=== PATIENT | male | born 1970 | race African-American/Black ===

== ENCOUNTER 2018-05-21 19:02 | Emergency (ER) | payer SELFPAY ==
--- NOTE | 2018-05-21 20:05 | ER Document Report ---
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 No fever. Associated Symptoms: None Exacerbated by: Movement Relieved by: Denies Similar symptoms previously: No Recently seen / treated by doctor: No - ROS ROS below otherwise negative: Yes Systems Reviewed and Negative: Yes All other systems reviewed and negative Past Medical History - General Information source: Patient - Social History Smoking Status: Current Every Day Smoker Occupation: Construction Lives with: Family Family History: None - Medical History Medical History: Negative Surgical Hx: Negative Vertical Provider Document - CONSTITUTIONAL Agree With Documented VS: Yes Exam Limitations: No Limitations - INFECTION CONTROL TRAVEL OUTSIDE OF THE [place] IN LAST 30 DAYS: No - MUSCULOSKELETAL/EXTREMETIES Musculoskeletal/Extremeties: MAEW, FROM, Tender - Right anterior knee with a small crusted abscess, larger red warm crusted abscess in the left superior pole of the patella, Edema - NEURO Level of Consciousness: Alert Motor/Sensory: No Motor Deficit, No Sensory Deficit Course - Vital Signs Vital signs: Temp Pulse Resp BP Pulse Ox 99.4 F 100 16 128/83 H 96 05/21/18 19:24 05/21/18 19:24 05/21/18 19:24 05/21/18 19:24 05/21/18 19:24 Procedures - Incision and Drainage Right Knee Time completed: 21:56 - bilateral knees Type: Simple Anesthetic type: 1% Lidocaine mL's of anesthetic: 5 - 3 left, 2 right Blade size: 11 I&D procedure: Other - surgiscrub Incision Method: Incision made by scalpel - deroofed , excised devitalized tissue, pus out of both wounds, rolled corner of 4 x 4 placed in both of the wounds Amount/type of drainage: large pus left knee, mild pus right knee Discharge - Discharge Clinical Impression: bilateral knee abscess i and d Condition: Good Disposition: HOME, SELF-CARE Instructions: Abscess ([facility]), Cephalexin ([facility]), Elevation & Warmth ([facility]), Oral Narcotic Medication ([facility]), Sulfa Medications ([facility]) Additional Instructions: Warm compress and elevate knees tomorrow do not work tomorrow wash with antibacterial soap and water daily Dry dressing Pain medication, hydrocodone 1-2 every 4 hours for pain Motrin 600 mg 4 times a day for inflammation and pain Return to the emergency room for wound check in 48 hours unless it is worse Forms: Return to Work
[2018-05-21] MEDS ORDERED: LIDOCAINE 4%/TETRACAINE 0.5%/EPI 0.18% 5 ML TOPICAL SOLN TOP ONE (20:37)
[2018-05-21] MEDS ORDERED: SULFAMETHOXAZOLE/TRIMETHOPRIM 800-160 MG TABLET PO ONE (20:38)
[2018-05-21] MEDS ORDERED: CEPHALEXIN 500 MG CAPSULE PO ONE (20:38)
[2018-05-21] MEDS ORDERED: HYDROCODONE/ACETAMINOPHEN 5-325 MG TABLET PO ONE (20:45)
[2018-05-21] MEDS ORDERED: HYDROCODONE/ACETAMINOPHEN 5-325 MG (6 TAB/ER DISP) PO PRN (20:46)
[2018-05-21 22:08] VITALS: BP 131/95
== END 2018-05-21 22:13 | disposition home or self-care (01) ==
LOC: ER 19:02
PROC: 0J9P0ZZ Drainage of Left Lower Leg Subcutaneous Tissue and Fascia, Open Approach (ICD-10-PCS; principal; 2018-05-21)
PROC: 0J9N0ZZ Drainage of Right Lower Leg Subcutaneous Tissue and Fascia, Open Approach (ICD-10-PCS; 2018-05-21)
DX: L02.416 Cutaneous abscess of left lower limb (principal); L02.415 Cutaneous abscess of right lower limb
CPT/HCPCS: 99283; 10060; 87070; 87205; 87077; 87186; J3490